=== PATIENT | male | born 1975 | race Caucasian/White ===

== ENCOUNTER 2021-12-18 22:23 | Emergency (ER) | payer BC ==
[2021-12-18] MEDS ORDERED: MORPHINE 4 MG/ML SYR ONE (23:03)
[2021-12-18] MEDS ORDERED: ONDANSETRON 4 MG/2 ML VIAL ONE (23:04)
[2021-12-18] MEDS ORDERED: NA CHLORIDE 0.9% 1,000 ML ONE (23:04)
[2021-12-18 23:36] LABS: Absolute Lymphocytes (CBC) 1.4 K/uL (0.7-4.9); Hematocrit 47.3 % (39.6-49.0); Lymphocytes % 15.2 % (15.3-44.8); MCV 88.5 fL (80-100); MPV 8.4 fL (7.6-11.3); RBC Red Blood Cell Count 5.34 M/uL (4.33-5.43)
[2021-12-18 23:49] LABS: Bilirubin Total 0.5 mg/dL (0.2-1.0); Potassium 4.3 mmol/L (3.5-5.1)
--- NOTE | 2021-12-19 01:16 | ER ---
Nurse's Notes [facility] Name: Roe Easton Age: 46 yrs Sex: Male : 1975 Arrival Date: 12/18/2021 Time: 22:26 Bed 20 Private MD: Diagnosis: Bilateral abdominous rectus muscle/sheath hematoma Presentation: 12/18 22:38 Chief complaint: Patient states: "I was in a class and I did a front roll and ever tw5 since my stomach has been hurting.". Coronavirus screen: Vaccine status: Patient reports receiving the 2nd dose of the covid vaccine. eMar. Ebola Screen: Patient negative for fever greater than or equal to 101.5 degrees Fahrenheit, and additional compatible Ebola Virus Disease symptoms Patient denies exposure to infectious person. Patient denies travel to an Ebola-affected area in the 21 days before illness onset. Initial Sepsis Screen: Does the patient meet any 2 criteria? HR > 90 bpm. Does the patient have a suspected source of infection? Yes: Acute abdominal pain. Risk Assessment: Do you want to hurt yourself or someone else? Patient reports no desire to harm self or others. Onset of symptoms was December 18, 2021 at 19:30. 22:38 Method Of Arrival: Ambulatory tw5 22:38 Acuity: EDILIA 3 tw5 Triage Assessment: 22:41 General: Appears in no apparent distress. obese, Behavior is calm, cooperative, tw5 appropriate for age. Pain: Pain currently is 4 out of 10 on a pain scale. GI: Reports lower abdominal pain. Historical: - Allergies: 22:41 No Known Allergies; tw5 - Home Meds: 22:40 None [Active]; tw5 - PMHx: 22:40 None; tw5 - Immunization history:: Flu vaccine is not up to date. - Social history:: Smoking status: Patient denies any tobacco usage or history of. Screenin/29 01:27 Abuse screen: Denies threats or abuse. Denies injuries from another. Nutritional sm5 screening: No deficits noted. Tuberculosis screening: No symptoms or risk factors identified. Fall Risk None identified. Assessment: 00:17 General: Appears uncomfortable, Behavior is cooperative. Pain: Complains of pain in sm5 left lower quadrant. Neuro: Level of Consciousness is awake, alert, obeys commands, Oriented to person, place, time, situation. Cardiovascular: Capillary refill < 3 seconds Patient's skin is warm and dry. Respiratory: Airway is patent Trachea midline Respiratory effort is even, unlabored. GI: Abdomen is obese, bruised on left lower quadrant Bowel sounds present X 4 quads. Abd is soft. 01:27 Reassessment: No changes from previously documented assessment. Patient and/or family 5 updated on plan of care and expected duration. Pain level reassessed. Patient is alert, oriented x 3, equal unlabored respirations, skin warm/dry/pink. Vital Signs: 12/18 22:38 BP 124 / 86; Pulse 96; Resp 18; Temp 98.7; Pulse Ox 97% ; Weight 131.54 kg; Height 5 tw5 ft. 6 in. (167.64 cm); Pain 4/10; 12/19 00:18 BP 125 / 90; Pulse 62; Resp 18; Pulse Ox 94% on R/A; sm5 01:27 BP 117 / 78; Pulse 61; Resp 19; Pulse Ox 95% on R/A; sm5 12/18 22:38 Body Mass Index 46.81 (131.54 kg, 167.64 cm) tw5 ED Course: 12/18 22:26 Patient arrived in ED. bp1 22:28 Reid Jesus NP is PHCP. pm1 22:28 Leno Mann MD is Attending Physician. pm1 22:40 Triage completed. tw5 22:41 Arm band placed on. tw5 22:53 Inserted saline lock: 20 gauge in right antecubital area, using aseptic technique. 5 Blood collected. 23:02 Mely Saenz, ATA is Primary Nurse. sm5 12/19 00:38 Abdomen In Process Unspecified. EDMS 01:27 Patient has correct armband on for positive identification. Bed in low position. Call [facility] light in reach. Side rails up X2. 01:28 No provider procedures requiring assistance completed. IV discontinued, intact, sm5 bleeding controlled, No redness/swelling at site. Pressure dressing applied. Administered Medications: 12/18 23:02 Drug: morphine 4 mg Route: IVP; Infused Over: 4 mins; Site: right antecubital; [facility] 12/19 01:27 Follow up: Response: No adverse reaction; RASS: Alert and Calm (0) [facility] 12/18 23:03 Drug: NS 0.9% 1000 ml Route: IV; Rate: 1 bolus; Site: right antecubital; 5 12/19 00:00 Follow up: IV Status: Completed infusion; IV Intake: 1000ml 5 12/18 23:03 Drug: Zofran (Ondansetron) 4 mg Route: IVP; Site: right antecubital; 5 12/19 01:26 Follow up: Response: No adverse reaction 5 01:18 Drug: Flexeril (cyclobenzaprine) 10 mg Route: PO; 5 01:28 Follow up: Response: No adverse reaction 5 01:19 Drug: Lidoderm Patch 5 % (700 mg/patch) 1 patches Route: Topical; Site: abdomen; 5 01:28 Follow up: Response: No adverse reaction [facility] Medication: 01:27 VIS not applicable for this client. 5 Intake: 00:00 IV: 1000ml; Total: 1000ml. [facility] Outcome: 01:15 Discharge ordered by . pm1 01:28 Discharged to home ambulatory, with significant other. [facility] 01:28 Condition: stable 01:28 Discharge instructions given to patient, significant other, Instructed on discharge instructions, follow up and referral plans. no drinking with medication, no driving heavy equipment, medication usage, Demonstrated understanding of instructions, follow-up care, medications, Prescriptions given X 4. 01:28 Patient left the ED. [facility] Signatures: Dispatcher [employer] EDMS Reid Jesus, [employer] pm1 Sapphire Pimentel Tiffany 5 Mely Saenz, RN RN 5
--- NOTE | 2021-12-19 01:16 | EDPHYS ---
Physician Documentation [facility] Name: Roe Easton Age: 46 yrs Sex: Male : 1975 Arrival Date: 12/18/2021 Time: 22:26 Bed 20 Private MD: ED Physician Leno Mann HPI: 12/18 22:37 This 46 yrs old Male presents to ER via Ambulatory with complaints of Abdominal Pain. pm1 22:37 The patient presents with abdominal pain in the left lower quadrant. Onset: The pm1 symptoms/episode began/occurred today. The symptoms do not radiate. Associated signs and symptoms: Pertinent negatives: nausea, vomiting, and diarrhea, chest pain, shortness of breath, flank pain. The symptoms are described as achy, burning. Modifying factors: The symptoms are alleviated by remaining still, the symptoms are aggravated by movement, standing up from seated position. Severity of pain: in the emergency department the pain is actually worse. The patient has not experienced similar symptoms in the past. The patient has not recently seen a physician. Pain immediately started after the patient performed a roll in [employer] class. Historical: - Allergies: 22:41 No Known Allergies; tw5 - Home Meds: 22:40 None [Active]; tw5 - PMHx: 22:40 None; tw5 - Immunization history:: Flu vaccine is not up to date. - Social history:: Smoking status: Patient denies any tobacco usage or history of. ROS: 22:37 Constitutional: Negative for fever, chills, and weight loss, Cardiovascular: Negative pm1 for chest pain, palpitations, and edema, Respiratory: Negative for shortness of breath, cough, wheezing, and pleuritic chest pain. 22:37 Back: Negative for injury and pain, : Negative for injury, bleeding, discharge, and swelling, MS/Extremity: Negative for injury and deformity, Skin: Negative for injury, rash, and discoloration, Neuro: Negative for headache, weakness, numbness, tingling, and seizure. 22:37 Abdomen/GI: Positive for abdominal pain, of the left lower quadrant, Negative for nausea, vomiting, and diarrhea. 22:37 All other systems are negative. Exam: 22:37 Constitutional: This is a well developed, well nourished patient who is awake, alert, pm1 and in no acute distress. Head/Face: Normocephalic, atraumatic. 22:37 Back: No spinal tenderness. No costovertebral tenderness. Full range of motion. MS/ Extremity: Pulses equal, no cyanosis. Neurovascular intact. Full, normal range of motion. 22:37 Cardiovascular: Exam negative for acute changes, Rate: normal, Rhythm: regular, Pulses: no pulse deficits are appreciated. 22:37 Respiratory: Exam negative for acute changes, respiratory distress, shortness of breath. 22:37 Abdomen/GI: Inspection: obese Palpation: soft, in all quadrants, moderate abdominal tenderness, in the left lower quadrant. 22:37 Neuro: Exam negative for acute changes, Orientation: is normal, Mentation: is normal, Motor: is normal, moves all fours. 22:37 Skin: Appearance: normal except for affected area, mild bruising present to left lower pm1 quadrant. Vital Signs: 22:38 BP 124 / 86; Pulse 96; Resp 18; Temp 98.7; Pulse Ox 97% ; Weight 131.54 kg; Height 5 tw5 ft. 6 in. (167.64 cm); Pain 4/10; 12/19 00:18 BP 125 / 90; Pulse 62; Resp 18; Pulse Ox 94% on R/A; sm5 01:27 BP 117 / 78; Pulse 61; Resp 19; Pulse Ox 95% on R/A; sm5 12/18 22:38 Body Mass Index 46.81 (131.54 kg, 167.64 cm) tw5 MDM: 12/18 22:37 Patient medically screened. pm1 22:45 Data reviewed: vital signs. Data interpreted: Pulse oximetry: on room air is 97 %. pm1 Interpretation: normal. 12/19 01:12 Counseling: I had a detailed discussion with the patient and/or guardian regarding: the pm1 historical points, exam findings, and any diagnostic results supporting the discharge/admit diagnosis, lab results, radiology results, the need for outpatient follow up, a family practitioner, Physical therapy, to return to the emergency department if symptoms worsen or persist or if there are any questions or concerns that arise at home. 12/18 22:37 Order name: CBC with Diff; Complete Time: 23:40 pm1 12/18 22:37 Order name: CMP; Complete Time: 23:56 pm1 12/18 22:37 Order name: Lipase; Complete Time: 23:56 pm1 12/19 00:18 Order name: Abdomen EDMS 12/18 22:37 Order name: IV Saline Lock; Complete Time: 22:53 pm1 12/18 22:37 Order name: Labs collected and sent; Complete Time: 22:53 pm1 Administered Medications: 12/18 23:02 Drug: morphine 4 mg Route: IVP; Infused Over: 4 mins; Site: right antecubital; [facility] 12/19 01:27 Follow up: Response: No adverse reaction; RASS: Alert and Calm (0) [facility] 12/18 23:03 Drug: NS 0.9% 1000 ml Route: IV; Rate: 1 bolus; Site: right antecubital; [facility] 12/19 00:00 Follow up: IV Status: Completed infusion; IV Intake: 1000ml [facility] 12/18 23:03 Drug: Zofran (Ondansetron) 4 mg Route: IVP; Site: right antecubital; [facility] 12/19 01:26 Follow up: Response: No adverse reaction [facility] 01:18 Drug: Flexeril (cyclobenzaprine) 10 mg Route: PO; [facility] 01:28 Follow up: Response: No adverse reaction [facility] 01:19 Drug: Lidoderm Patch 5 % (700 mg/patch) 1 patches Route: Topical; Site: abdomen; [facility] 01:28 Follow up: Response: No adverse reaction 5 Disposition: 04:02 Co-signature as Attending Physician, Leno Mann MD I agree with the assessment and rn plan of care. Attestation: The patient's history, exam findings, diagnostics, and a summary of any interventions or procedures was reviewed in detail with Reid Jesus NP. Disposition Summary: 12/19/21 01:15 Discharge Ordered Location: Home pm1 Problem: new pm1 Symptoms: have improved pm1 Condition: Stable pm1 Diagnosis - Bilateral abdominous rectus muscle/sheath hematoma pm1 Followup: pm1 - With: Emergency Department - When: As needed - Reason: Worsening of condition Followup: pm1 - With: Private Physician - When: 2 - 3 days - Reason: Recheck today's complaints, Continuance of care, Re-evaluation by your physician Discharge Instructions: - Discharge Summary Sheet pm1 - Muscle Strain pm1 Forms: - Medication Reconciliation Form pm1 - Thank You Letter pm1 - Antibiotic Education pm1 - Prescription Opioid Use pm1 Prescriptions: - Lidoderm 5 % Topical adhesive patch,medicated - apply 1 patch by TRANSDERMAL route once daily As needed 12 hours on and 12 pm1 hours off in a 24-hour period; 30 patch; Refills: 0, Product Selection Permitted - Cyclobenzaprine 10 mg Oral Tablet - take 1 tablet by ORAL route every 8 hours As needed; 30 tablet; Refills: 0, pm1 Product Selection Permitted - Diclofenac Sodium 75 mg Oral tablet,delayed release (DR/EC) - take 1 tablet by ORAL route 2 times per day As needed; 30 tablet; Refills: 0, pm1 Product Selection Permitted - Tylenol-Codeine #3 300 mg-30 mg Oral - take 2 tablet by ORAL route every 6 hours As needed; 20 tablet; Refills: 0, pm1 Product Selection Permitted Signatures: Dispatcher [employer] EDMS Leno Mann MD MD rn Marinas, Patrick, ELECTRICAL [employer]TER ELECTRICAL FITTER pm1 Tanya Hernandez 5 Mely Saenz, RN RN 5 Corrections: (The following items were deleted from the chart) 00:06 12/18 22:37 Back: No spinal tenderness. No costovertebral tenderness. Full range of pm1 motion. Skin: Warm, dry with normal turgor. Normal color with no rashes, no lesions, and no evidence of cellulitis. MS/ Extremity: Pulses equal, no cyanosis. Neurovascular intact. Full, normal range of motion. pm1 12/19 00:18 12/18 22:39 Abdomen Pelvis W Con+CT.RAD.BRZ ordered. EDMS EDMS
[2021-12-19] MEDS ORDERED: CYCLOBENZAPRINE 10 MG TAB ONE (01:25)
[2021-12-19] MEDS ORDERED: LIDOCAINE 4% PATCH ONE (01:26)
[2021-12-19 05:38] VITALS: TEMP 98.7
[2021-12-19 05:48] VITALS: BP 117/78; O2SAT 95
--- NOTE | 2021-12-19 11:52 | RAD REPORT ---
EXAM DESCRIPTION: CT - Abdomen Pelvis Wo Contrast - 12/19/2021 4:07 am CLINICAL HISTORY: The patient is 46 years old and is Male; LLQ abdominal pain TECHNIQUE: Axial computed tomography images of the abdomen and pelvis without intravenous contrast. Sagittal and coronal reformatted images were created and reviewed. This CT exam was performed usi ng one or more of the following dose reduction techniques: automated exposure control, adjustment o f the mA and/or kV according to patient size, and/or use of iterative reconstruction technique. COMPARISON: No relevant prior studies available. FINDINGS: LUNG BASES: Minimal atelectasis within the right lower lobe is present. ABDOMEN: LIVER: Homogeneous without focal mass. GALLBLADDER AND BILE DUCTS: Multiple gallstones are present within the gallbladder. The gallstone s contain central air. There is no gallbladder wall thickening or pericholecystic fluid. PANCREAS: Fatty infiltration of pancreas is present. No ductal dilation. SPLEEN: Unremarkable. ADRENALS: Unremarkable. No mass. KIDNEYS AND URETERS: Bilateral intrarenal calcifications are noted. There is no hydronephrosis or hydroureter of either kidney. No obstructing renal or ureteral calculi are seen. STOMACH AND BOWEL: Postsurgical change of the stomach is present. The small bowel is normal in ca liber. Stool is present throughout colon. Scattered colonic diverticula are noted without surrounding inflammation. No mucosal thickening or evidence of bowel obstruction. PELVIS: APPENDIX: The appendix is normal in caliber without surrounding inflammation. BLADDER: Unremarkable. No stones. REPRODUCTIVE: Unremarkable as visualized. ABDOMEN and PELVIS: INTRAPERITONEAL SPACE: Unremarkable. No free air. No significant fluid collection. BONES/JOINTS: No acute fracture. SOFT TISSUES: Enlargement and high density of the bilateral rectus abdominis muscles is noted spe cifically inferiorly. The left side is slightly larger than the right. Enlargement is confined to the abdominal wall. VASCULATURE: Unremarkable. No abdominal aortic aneurysm. LYMPH NODES: Unremarkable. No enlarged lymph nodes. OTHER FINDINGS: Elevation right hemidiaphragm is present. IMPRESSION: Findings suggest bilateral rectus abdominous muscle/rectus sheath hematomas. Electronically signed by: Zulma Crenshaw MD 12/19/2021 12:56 AM CDT Due to temporary technical issues with the PACS/Fluency reporting system, reports are being signed by the in house radiologists without review as a courtesy to insure prompt reporting. The interpreting radiologist is fully responsible for the content of the report.
== END 2021-12-19 01:28 | disposition home or self-care (01) ==
LOC: ER 22:23
DX: S30.1XXA Contusion of abdominal wall, initial encounter (principal)
CPT/HCPCS: 85025; 36415; 83690; 80053; 74176; J2001; J7030; J2405; 96361; 96374; 96375; 99284